=== PATIENT | male | born 1965 | race African-American/Black ===

== ENCOUNTER 2022-12-14 21:55 | Emergency (ER) | payer OTHER ==
[2022-12-14] MEDS ORDERED: Sodium Chloride 0.9% 1,000 ML ONE (22:24)
[2022-12-14 22:31] LABS: #Basophils 0.1 thou/uL (0.0-0.2); #Eosinphils 0.2 thou/uL (0.0-0.7); #Lymphocytes 1.3 thou/uL (1.20-3.40); #Monocytes 0.6 thou/uL (0.11-0.59); #Neutrophils 3.2 thou/uL (1.40-6.50); %Basophils 1.2 % (0.0-1.0); %Eosinophils 3.6 % (0.0-10.0); %Lymphocytes 24.6 % (21.0-51.0); %Monocytes 11.3 % (0.0-10.0); %Neutrophils 59.4 % (42.0-75.0); Hemoglobin 13.8 g/dL (14.0-18.0); Mean Corpuscular HGB CONC 32.3 g/dL (32.0-36.0); Mean Corpuscular Hemoglobin 28.8 pg (27.0-31.0); Mean Platelet Volume 6.3 fL (7.4-10.4); Platelet Count 181 10x3/uL (130-400); RBC Distribution Width 13.4 % (11.5-14.5); Red Blood Cell (RBC) Count 4.78 mill/uL (4.70-6.10); White Blood Cell (WBC) Count 5.4 10x3/uL (4.8-10.8)
[2022-12-14 22:36] LABS: Prothrombin Time 23.2 sec (12.0-14.7)
[2022-12-14 22:37] LABS: PTT 30.2 sec (22.9-36.1)
[2022-12-14 22:45] LABS: ALT (SGPT) 22 U/L (8-55); AST (SGOT) 18 U/L (5-34); Albumin 3.5 g/dL (3.5-5.0); Alkaline Phosphatase 183 U/L (40-110); Anion Gap 16 mmol/L (10-20); BUN (Urea Nitrogen) 77 mg/dL (8.4-25.7); Bilirubin, Total 0.3 mg/dL (0.2-1.2); Calc. Creatinine Clearance 0 mL/min (70-130); Calcium 9.3 mg/dL (7.8-10.44); Carbon Dioxide 26 mmol/L (22-29); Chloride 97 mmol/L (98-107); Estimated GFR 27; Globulin 5.2 g/dL (2.4-3.5); Glucose 167 mg/dL (70-105); Potassium 4.7 mmol/L (3.5-5.1); Protein, Total 8.7 g/dL (6.0-8.3); Sodium 134 mmol/L (136-145)
[2022-12-14 23:57] LABS: ALT (SGPT) 21 U/L (8-55); AST (SGOT) 16 U/L (5-34); Albumin 3.3 g/dL (3.5-5.0); Alkaline Phosphatase 176 U/L (40-110); Anion Gap 19 mmol/L (10-20); BUN (Urea Nitrogen) 76 mg/dL (8.4-25.7); Bilirubin, Total 0.3 mg/dL (0.2-1.2); Calc. Creatinine Clearance 0 mL/min (70-130); Carbon Dioxide 23 mmol/L (22-29); Chloride 99 mmol/L (98-107); Estimated GFR 29; Globulin 4.9 g/dL (2.4-3.5); Glucose 122 mg/dL (70-105); Potassium 4.5 mmol/L (3.5-5.1); Protein, Total 8.2 g/dL (6.0-8.3); Sodium 136 mmol/L (136-145)
== END 2022-12-15 01:09 ==
LOC: EEVIPCON 21:55 → NAV ERS 21:55
DX: E86.0 Dehydration (principal); I13.0 Hypertensive heart and chronic kidney disease with heart failure and stage 1 through stage 4 chronic kidney disease, or unspecified chronic kidney disease; E11.22 Type 2 diabetes mellitus with diabetic chronic kidney disease; N18.9 Chronic kidney disease, unspecified; I50.9 Heart failure, unspecified; J44.9 Chronic obstructive pulmonary disease, unspecified; E11.40 Type 2 diabetes mellitus with diabetic neuropathy, unspecified; E66.9 Obesity, unspecified; Z79.4 Long term (current) use of insulin; Z79.899 Other long term (current) drug therapy; Z79.01 Long term (current) use of anticoagulants
CPT/HCPCS: 36415; 80053; 85025; 85610; 85730; 96360; J7050